=== PATIENT | female | born 1965 | race Caucasian/White ===

== ENCOUNTER 2024-07-25 19:46 | Outpatient (CLI) | payer OTHER ==
--- NOTE | 2024-08-04 14:37 | P.PCN ---
Description of Procedure: POLYSOMNOGRAPHY REPORT PROCEDURE(S)/DATE(S): Polysomnography 07/25/2024 CLINICAL: Patient has been seen in the sleep center for evaluation of obstructive sleep apnea-hypopnea syndrome. Please see my consultation. Sleep study has been done for evaluation of patient breathing during the sleep. PROCEDURE: The standard montage for clinical polysomnography included the electroencephalogram, the electrooculogram, the mentalis surface electromyography and Lead II cardiography. The respiratory battery consisted of measurements of nasal/buccal air flow, pressure transducer measurements from nose, thoracic and/or abdominal effort and intercostal surface electromyography. Video monitoring has been done to check for any parasomnia events. Nocturnal oxyhemoglobin saturations were obtained by finger oximetry. Step-nelson titration with positive airway pressure was utilized to control the respiratory events, if necessary. RESULTS: During the diagnostic sleep study sleep efficiency was slightly decreased to 83.3%. Latency to sleep onset was normal 21.5 min. Sleep architecture showed stage NI was normal 5.7%, Delta sleep was short 1.7%, REM sleep was slightly decreased to 18.9%. Respiratory channel showed 9 obstructive apneas, 3 mixed apneas, 0 central apneas, 387 hypopneas with lowest oxygen level 62%. Total apnea hypopnea index was 76.0. Heart rate was in the range between 63 and 72, average 67. EMG showed 1.5 periodic limb movements per hour with 0 micro-arousals per hour. IMPRESSIONS: 1. Extremely severe obstructive sleep apnea hypopnea syndrome with severe oxygen desaturation, oxygen level was below or equal 88% for 40.7 minutes. 2. No significant periodic limb movements have been documented. Please see other impressions from consultation PLAN: 1. The patient will have PAP titration for correction of respiratory abnormalities during the sleep. 2. Losing weight program. 3. Sleep hygiene with regular time in bed for at least 7-1/2 hours. 4. No driving if feeling sleepiness. Thank you very much for allowing me to participate in the management of your patient. Sincerely, Serg Malave MD, PhD, FAASM. Diplomat of [place] [employer], Sleep Medicine Board by [place] [employer] Fabric Coating Supervisor of [facility] [place] cc: Mario Pena DO
== END 2024-07-26 05:45 | disposition home or self-care (01) ==
LOC: 3 N SLEEP 19:46
PROVIDERS: ATTEND Internal Medicine
DX: G47.33 Obstructive sleep apnea (adult) (pediatric) (principal)
CPT/HCPCS: 95810

== ENCOUNTER → 2024-09-09 | Outpatient (CLI) | payer OTHER ==
--- NOTE | 2024-09-09 17:00 | P.PROGSL ---
Subjective DATE: 09/09/2024 FOLLOW UP VISIT. 59-year-old lady has been followed in sleep center to discuss results of sleep study and following plan. I discussed results of sleep study with patient in details. Sleep study showed 3-minute severe obstructive sleep apnea hypopnea syndrome with apnea hypopnea index 76.0 and severe oxygen desaturation to 62%. Patient continues to have significant sleepiness. [place] Sleepiness Scale today is 13. Study have been done with oral appliances for snoring. MEDICATIONS: Please see below During physical exam: GENERAL: A pleasant patient without any distress. VITAL SIGNS: Please see below, weight 236 pounds, BMI 43.1. HEENT: PERRLA, EOMI.low position of soft palate, Mallapati 4 . NECK: Supple. No JVD. LUNGS: Clear to percussion and to auscultation. Good air exchange. No wheezing or rhonchi. HEART: S1, S2 regular. ABDOMEN: Soft and nontender.[] EXTREMITIES: No clubbing or cyanosis. RETAIL INVENTORY CONTROL CLERK: Awake, alert, and oriented x3. No focal deficit. Impressions: 1. Severe obstructive sleep apnea hypopnea syndrome. Apnea hypopnea index 76.0 with oxygen desaturation to severely low 62%. 2. Hypertension. 3. Obesity, BMI 43.1. 4. Allergy. 5. Hyperlipidemia. 6. Status post tonsillectomy and adenoidectomy. 7. History of depression. 8. Status post total hysterectomy. Plan: 1. CPAP titration for correction of respiratory abnormalities during sleep. 2. Patient will get PAP treatment after titration. 3. Watching and losing weight. 4. Sleep hygiene with regular time in bed for at least 8 hours. 5. Precautions related to driving. No driving if feel any sleepiness. Thank you very much for allowing me to participate in the management of your patient. Serg Malave MD, PhD, FAASM. Diplomat of [place] [employer], Sleep Medicine Board by [place] [employer] Electronic Warfare Linguist of [facility] [place] Objective Home Medications: Home Medications Medication Instructions Recorded Confirmed Type Docusate [Colace] 100 mg PO DAILY 06/23/24 06/23/24 History Fluticasone Furoate [Arnuity 200 mcg INHALATION DAILY 06/23/24 06/23/24 History Ellipta] Fluticasone Nasal [place] [Flonase 1 spray EA NOSTRIL DAILY 06/23/24 06/23/24 History Nasal [place]] Levalbuterol Hfa Inhaler [Xopenex See Rx Instructions .ROUTE 06/23/24 06/23/24 History Hfa Inhaler] .COMPLEX PRN Rosuvastatin [Crestor] 20 mg PO DAILY 06/23/24 06/23/24 History Telmisartan/Hydrochlorothiazid See Rx Instructions .ROUTE .COMPLEX 06/23/24 06/23/24 History [Telmisartan-Hctz 80-25 mg Tab] Zolpidem [Ambien] 5 mg PO HS 06/23/24 06/23/24 History amLODIPine [Norvasc] 10 mg PO DAILY 06/23/24 06/23/24 History
== END ==
LOC: 3 N SLEEP 15:54
PROVIDERS: ATTEND Internal Medicine
DX: G47.33 Obstructive sleep apnea (adult) (pediatric) (principal); I10 Essential (primary) hypertension; E78.5 Hyperlipidemia, unspecified; T78.40XA Allergy, unspecified, initial encounter; E66.9 Obesity, unspecified; Z68.41 Body mass index [BMI] 40.0-44.9, adult; Z90.89 Acquired absence of other organs; Z90.710 Acquired absence of both cervix and uterus; Z86.59 Personal history of other mental and behavioral disorders

== ENCOUNTER → 2024-11-03 | Outpatient (CLI) | payer OTHER ==
[2024-11-03 13:31] VITALS: BP 172/84; PULSE 60; RESP 18; TEMP 98.4
--- NOTE | 2024-11-03 13:49 | P.PROGSL ---
Subjective DATE: 11/03/2024 FOLLOW UP VISIT. Patient with obstructive sleep apnea hypopnea syndrome return to sleep center for follow-up visit. Recently patient had sleep study which documented obstructive sleep apnea hypopnea syndrome. Patient was initiated on PAP therapy and today is first visit after treatment was started. Patient was able to use PAP equipment every night for the whole night. The patient does not have significant problems with the mask, PAP pressure and humidification. [place] sleepiness scale is 3, which is normal. I checked information from PAP unit. PAP unit pressure 5.14, average 13.4 cm H2O. Usage is 100% for more then 4 hours, average 8.75 hours per night. Leak is perfect at 2.8 l/m. Apnea Hypopnea Index is also perfect 0.5. MEDICATIONS: Please see below During physical exam: GENERAL: A pleasant patient without any distress. VITAL SIGNS: 248.0. HEENT: PERRLA, EOMI.low position of soft palate, Mallapati 4 . NECK: Supple. No JVD. LUNGS: Clear to percussion and to auscultation. Good air exchange. No wheezing or rhonchi. HEART: S1, S2 regular. ABDOMEN: Soft and nontender. Obese EXTREMITIES: No clubbing or cyanosis. OUTPATIENT SURGERY RN: Awake, alert, and oriented x3. No focal deficit. Impressions: 1. Severe obstructive sleep apnea-hypopnea syndrome, apnea hypopnea index 76. Patient demonstrated great compliance with treatment, benefiting from treatment. 2. Obesity. 3. Hypertension. 4. Allergy. 5. Hyperlipidemia. 6. Status post tonsillectomy and adenoidectomy. 7. History of depression. 8. Status post total hysterectomy. Plan: 1. Continue using PAP equipment every night for the whole night. 2. To change air filter at least 1-2 times per month. 3. PAP unit should stay lower then position of the head. 4. Advised patient to remove all remaining water from humidifier canister daily and make it dry after each usage. Refill canister with fresh distilled water before each usage. 5. Sleep hygiene with regular time in bed for at least 8 hours. 6. Precautions related to driving. No driving if feel any sleepiness. 7. I will maintain prescription for PAP supplies including mask, tube, filters. 8. Follow up visit in 8 months or earlier if patient has any problems. 9. Watching and losing weight. Thank you very much for allowing me to participate in the management of your patient. Serg Malave MD, PhD, FAASM. Diplomat of [place] [employer], Sleep Medicine Board by [place] [employer] Truck Safety Inspector of [facility] [place] Objective - Vital Signs Vital Signs: Vital Signs Temp 98.4 F 11/03/24 13:31 Pulse 60 11/03/24 13:31 Resp 18 11/03/24 13:31 BP 172/84 11/03/24 13:31 Pulse Ox 95 11/03/24 13:31 FiO2 Intake & Output 11/02/24 11/03/24 11/03/24 18:59 06:59 18:59 Weight 112.491 kg Home Medications: Home Medications Medication Instructions Recorded Confirmed Type Docusate [Colace] 100 mg PO DAILY 06/23/24 06/23/24 History Fluticasone Furoate [Arnuity 200 mcg INHALATION DAILY 06/23/24 06/23/24 History Ellipta] Fluticasone Nasal [place] [Flonase 1 spray EA NOSTRIL DAILY 06/23/24 06/23/24 History Nasal [place]] Levalbuterol Hfa Inhaler [Xopenex See Rx Instructions .ROUTE 06/23/24 06/23/24 History Hfa Inhaler] .COMPLEX PRN Rosuvastatin [Crestor] 20 mg PO DAILY 06/23/24 06/23/24 History Telmisartan/Hydrochlorothiazid See Rx Instructions .ROUTE .COMPLEX 06/23/24 06/23/24 History [Telmisartan-Hctz 80-25 mg Tab] Zolpidem [Ambien] 5 mg PO HS 06/23/24 06/23/24 History amLODIPine [Norvasc] 10 mg PO DAILY 06/23/24 06/23/24 History
== END ==
LOC: 3 N SLEEP 13:04
PROVIDERS: ATTEND Internal Medicine
DX: G47.33 Obstructive sleep apnea (adult) (pediatric) (principal); E66.9 Obesity, unspecified; I10 Essential (primary) hypertension; T78.40XA Allergy, unspecified, initial encounter; E78.5 Hyperlipidemia, unspecified; F32.A Depression, unspecified; Z90.710 Acquired absence of both cervix and uterus; Z90.89 Acquired absence of other organs; Z98.890 Other specified postprocedural states; Z99.89 Dependence on other enabling machines and devices
CPT/HCPCS: 99212